=== PATIENT | female | born 1945 | race Caucasian/White ===

== ENCOUNTER 2016-11-09 08:16 | Outpatient (CLI) | payer MEDICARE, OTHER ==
[2016-11-09 17:37] LABS: BASOPHILS % (AUTO) 0.5 %; EOSINOPHILS % (AUTO) 0.4 %; HCT - HEMATOCRIT 42.1 % (37.0-47.0); HGB - HEMOGLOBIN 14.1 g/dL (12.0-16.0); LYMPHOCYTES # (AUTO) 2.5 10^3/uL (1.5-3.5); LYMPHOCYTES % (AUTO) 35.8 %; MEAN CORPUSCULAR HEMOGLOBIN 33.2 pg (27.0-31.0); MEAN CORPUSCULAR HGB CONC 33.4 g/dL (32.0-36.0); MEAN CORPUSCULAR VOLUME 99.3 fL (81.0-99.0); MEAN PLATELET VOLUME 7.8 fL (7.9-10.8); MONOCYTES # (AUTO) 0.5 10^3/uL (0.0-1.0); MONOCYTES % (AUTO) 7.9 %; NEUTROPHILS # (AUTO) 3.9 10^3/uL (1.5-6.6); NEUTROPHILS % (AUTO) 55.4 %; NUCLEATED RED BLOOD CELLS AUTO 0.1 /100WBC; RED BLOOD COUNT 4.24 10^6/uL (4.20-5.40); RED CELL DISTRIBUTION WIDTH 12.5 % (12.0-15.0)
[2016-11-09 20:34] LABS: ALBUMIN/GLOBULIN RATIO 1.3 (1.0-2.2); BILIRUBIN,TOTAL 0.8 mg/dL (0.2-1.0); BUN - BLOOD UREA NITROGEN 18 mg/dL (6-20); CALCIUM 9.8 mg/dL (8.5-10.3); CARBON DIOXIDE - CO2 28 mmol/L (21-32); CHLORIDE 107 mmol/L (101-111); CHOL/HDL RATIO 4.7 (<4.4); CHOLESTEROL 246 mg/dL; CREATININE 0.7 mg/dL (0.4-1.0); GFR - MDRD 83 (>89); GLUCOSE 106 mg/dL (70-100); HDL CHOLESTEROL 52 mg/dL; LDL/HDL RATIO 3.2 (<4.4); POTASSIUM 4.1 mmol/L (3.5-5.0); SODIUM 140 mmol/L (135-145); TOTAL PROTEIN 6.3 g/dL (6.7-8.2); TRIGLYCERIDES 145 mg/dL; VLDL CHOLESTEROL 29 mg/dL
== END 2016-11-09 08:17 | disposition home or self-care (01) ==
LOC: LAB.F 08:16
PROVIDERS: ATTEND Physician Assistant Medical
DX: G47.00 Insomnia, unspecified (principal); E78.2 Mixed hyperlipidemia; Z79.899 Other long term (current) drug therapy
CPT/HCPCS: 36415; 80053; 80061; 82306; 84443; 85025

== ENCOUNTER 2017-07-12 13:20 | Outpatient (CLI) | payer MEDICARE, OTHER ==
[2017-07-12] MEDS ORDERED: ALBUTEROL NEB 2.5 MG/3 ML INH ONE (14:00)
== END 2017-07-12 13:21 | disposition home or self-care (01) ==
LOC: RT 13:20
PROVIDERS: ATTEND Nurse Practitioner Primary Care
DX: J45.909 Unspecified asthma, uncomplicated (principal); R06.2 Wheezing
CPT/HCPCS: 94060

== ENCOUNTER 2018-01-24 08:32 | Outpatient (CLI) | payer MEDICARE, OTHER ==
[2018-01-24 12:58] LABS: BASOPHILS % (AUTO) 0.8 %; EOSINOPHILS # (AUTO) 0.2 10^3/uL (0.0-0.7); EOSINOPHILS % (AUTO) 3.9 %; HGB - HEMOGLOBIN 13.2 g/dL (12.0-16.0); LYMPHOCYTES # (AUTO) 2.1 10^3/uL (1.5-3.5); LYMPHOCYTES % (AUTO) 41.5 %; MEAN CORPUSCULAR HEMOGLOBIN 33.7 pg (27.0-31.0); MEAN CORPUSCULAR HGB CONC 34.7 g/dL (32.0-36.0); MEAN CORPUSCULAR VOLUME 96.9 fL (81.0-99.0); MEAN PLATELET VOLUME 7.8 fL (7.9-10.8); MONOCYTES # (AUTO) 0.5 10^3/uL (0.0-1.0); MONOCYTES % (AUTO) 9.6 %; NEUTROPHILS # (AUTO) 2.2 10^3/uL (1.5-6.6); NEUTROPHILS % (AUTO) 44.2 %; PLT - PLATELET COUNT 223 10^3/uL (130-450); RED BLOOD COUNT 3.93 10^6/uL (4.20-5.40); RED CELL DISTRIBUTION WIDTH 12.9 % (12.0-15.0); WHITE BLOOD COUNT 5.1 x10^3/uL (4.8-10.8)
[2018-01-24 13:19] LABS: ALBUMIN 3.4 g/dL (3.2-5.5); ALBUMIN/GLOBULIN RATIO 1.4 (1.0-2.2); ALKALINE PHOSPHATASE 53 IU/L (42-121); ALT ALANINE AMINOTRANSFERASE 22 IU/L (10-60); AST ASPARTATE AMINOTRANSFERASE 18 IU/L (10-42); BILIRUBIN,TOTAL 0.7 mg/dL (0.2-1.0); BUN - BLOOD UREA NITROGEN 17 mg/dL (6-20); CALCIUM 9.1 mg/dL (8.5-10.3); CARBON DIOXIDE - CO2 27 mmol/L (21-32); CHLORIDE 109 mmol/L (101-111); CHOL/HDL RATIO 4.8 (<4.4); CHOLESTEROL 213 mg/dL; CREATININE 0.7 mg/dL (0.4-1.0); GFR - MDRD 82 (>89); GLUCOSE 109 mg/dL (70-100); HDL CHOLESTEROL 44 mg/dL; LDL CHOLESTEROL,CALCULATED 144 mg/dL; LDL/HDL RATIO 3.3 (<4.4); SODIUM 142 mmol/L (135-145); TOTAL PROTEIN 5.9 g/dL (6.7-8.2); VLDL CHOLESTEROL 25 mg/dL
[2018-01-25 13:01] LABS: HEPATITIS C ANTIBODY NON-REACTIVE (NON-REACTIVE)
== END 2018-01-24 08:33 | disposition home or self-care (01) ==
LOC: LAB.F 08:32
PROVIDERS: ATTEND Physician Assistant Medical
DX: E55.9 Vitamin D deficiency, unspecified (principal); Z79.899 Other long term (current) drug therapy; M79.7 Fibromyalgia; G47.00 Insomnia, unspecified; M54.2 Cervicalgia; Z11.59 Encounter for screening for other viral diseases; E78.2 Mixed hyperlipidemia
CPT/HCPCS: 36415; 80053; 80061; 82306; 83721; 84443; 85025; 86803

== ENCOUNTER 2018-01-29 09:41 | Outpatient (CLI) | payer MEDICARE, OTHER ==
--- NOTE | 2018-01-29 17:12 | XRAY Report ---
Reason: HIP JOINT PAIN,LEFT,SHOULDER JOINT PAIN,RIGHT Procedure Date: 01/29/2018 Accession Number: [id number] / [id number] Procedure: XR - Hip w/Pelvis 2-3V LT CPT Code: FULL RESULT: EXAM: LEFT HIP AND PELVIS RADIOGRAPHY EXAM DATE: 01/29/2018 09:54 AM. HISTORY: Hip joint pain, left, shoulder joint pain, right. COMPARISONS: None. TECHNIQUE: 1 view of the pelvis and 1 view of the hip. FINDINGS: Bones: Normal. No fracture or bone lesion. Joints: The pubis symphysis, and sacroiliac joints are preserved. There is joint space narrowing of the femoral acetabular joints, mild and relatively symmetric. Soft Tissues: Normal. No soft tissue swelling. IMPRESSION: No fracture or dislocation. RADIA
--- NOTE | 2018-01-29 17:12 | XRAY Report ---
Reason: HIP JOINT PAIN,LEFT,SHOULDER JOINT PAIN,RIGHT Procedure Date: 01/29/2018 Accession Number: [id number] / [id number] Procedure: XR - Shoulder 2 View RT CPT Code: FULL RESULT: EXAM: RIGHT SHOULDER RADIOGRAPHY EXAM DATE: 01/29/2018 09:54 AM. CLINICAL HISTORY: Hip joint pain, left. Shoulder joint pain, right. COMPARISON: None. TECHNIQUE: 2 views. FINDINGS: Bones: Normal. No fracture or bone lesion. Joints: The glenohumeral joint is located. The acromioclavicular joint demonstrates mild degenerative changes. Soft tissues: The visualized hemithorax is unremarkable. No soft tissue swelling. IMPRESSION: No fracture or dislocation with mild AC joint degeneration as described. RADIA
== END 2018-01-29 09:42 | disposition home or self-care (01) ==
LOC: DI 09:41
PROVIDERS: ATTEND Physician Assistant Medical
DX: M25.552 Pain in left hip (principal); M19.011 Primary osteoarthritis, right shoulder

== ENCOUNTER 2018-02-14 12:51 | Outpatient (CLI) | payer MEDICARE, OTHER | END 2018-02-14 12:52 | disposition home or self-care (01) | LOC: LAB.F 12:51 | PROVIDERS: ATTEND Physician Assistant Medical | DX: Z01.818 Encounter for other preprocedural examination (principal) | CPT/HCPCS: 81001; 81003; 87086 ==

== ENCOUNTER 2018-07-09 08:00 | Outpatient (CLI) | payer MEDICARE, OTHER | END 2018-07-09 23:59 | disposition home or self-care (01) | LOC: LAB.R 08:00 | PROVIDERS: ATTEND Internal Medicine Gastroenterology | DX: K86.2 Cyst of pancreas (principal) | CPT/HCPCS: 81599; 82656 ==

== ENCOUNTER 2019-12-26 14:56 | Day surgery (SDC) | payer MEDICARE, OTHER ==
--- NOTE | 2019-12-26 15:01 | ED Physician Documentation ---
PD HPI LOWER EXT INJURY - Stated complaint Stated Complaint: ANKLE INJURY - History obtained from History obtained from: Patient, EMS - History of Present Illness PD HPI LOW EXT INJURY LOCATION: Left (She tripped and fell while hiking injuring her left ankle. No other injury. Unable to walk or bear weight. Pain is mild at rest but severe with any motion.) Review of Systems Ten Systems: 10 systems reviewed and negative Constitutional: reports: Reviewed and negative Eyes: reports: Reviewed and negative Nose: reports: Reviewed and negative Throat: reports: Reviewed and negative Cardiac: reports: Reviewed and negative Respiratory: reports: Reviewed and negative PD PAST MEDICAL HISTORY - Past Medical History Past Medical History: Yes - Present Medications Home Medications: Ambulatory Orders Medication Instructions Recorded Confirmed Docusate Sodium 100 mg PO BID #60 capsule 12/26/19 HYDROmorphone [Dilaudid] 1 - 2 tab PO Q4H PRN #30 tablet 12/26/19 Knee Scooter 1 unit TD ONCE #1 12/26/19 - Allergies Allergies/Adverse Reactions: Allergies Allergy/AdvReac Type Severity Reaction Status Date / Time codeine AdvReac Nausea Verified 12/26/19 15:43 - Living Situation Living Situation: reports: With spouse/s.o. - Social History Does the pt smoke?: No Does the pt have substance abuse?: No - Family History Family history: reports: Non contributory PD ED PE NORMAL - Vitals Vital signs reviewed: Yes - General General: Alert and oriented X 3, No acute distress - HEENT HEENT: PERRL, EOMI - Neck Neck: Supple, no meningeal sign, No bony TTP - Cardiac Cardiac: RRR, No murmur - Respiratory Respiratory: No respiratory distress, Clear bilaterally - Abdomen Abdomen: Soft, Non tender - Back Back: No CVA TTP, No spinal TTP - Derm Derm: Normal color, Warm and dry - Extremities Extremities: No edema, Other (She is tender over the proximal fibula on the left without deformity there. A lot of swelling especially over the lateral ankle on the left. Intact pedal pulses and sensation.) - Neuro Neuro: Alert and oriented X 3, Normal speech - Psych Psych: Normal mood, Normal affect Results - Vitals Vitals: Vital Signs - 24 hr 12/26/19 15:11 Temperature 36.8 C Heart Rate 76 Respiratory 18 Rate Blood Pressure 128/76 O2 Saturation 97 Oxygen O2 Source Room air - EKG (time done) 1754 Rate: Rate (enter#) (70) Rhythm: NSR Kimberly: Normal Intervals: Normal NE QRS: Normal Ischemia: Normal ST segments Computer interpretation: Agree with computer - Labs Labs: Laboratory Tests 12/26/19 12/26/19 12/26/19 17:00 17:00 17:00 WBC 10.5 RBC 4.21 Hgb 14.1 Hct 40.6 MCV 96.4 MCH 33.5 H MCHC 34.7 RDW 12.7 Plt Count 229 MPV 9.3 Neut # (Auto) 7.1 H Lymph # (Auto) 2.5 Leake # (Auto) 0.7 Eos # (Auto) 0.2 Baso # (Auto) 0.0 Absolute Nucleated RBC 0.00 Nucleated RBC % 0.0 PT 11.8 INR 1.0 Sodium 140 Potassium 4.1 Chloride 106 Carbon Dioxide 24 Anion Gap 10.0 BUN 14 Creatinine 0.6 Estimated GFR (MDRD) 98 Glucose 117 H Calcium 9.7 - Rads (name of study) L ankle/tibfib Radiology: EMP read contemporaneously (Trimalleolar fracture of the left ankle) PD MEDICAL DECISION MAKING - ED course ED course: 74-year-old woman with a trimalleolar fracture of the left ankle, she is otherwise healthy. Dr. Sabillon will come in and see her and likely do surgery tonight. Departure - Departure Disposition: ED Transfer to [facility] Clinical Impression: Trimalleolar fracture of ankle, closed Qualifiers: Encounter type: initial encounter Laterality: left Qualified Code(s): S82.852A - Displaced trimalleolar fracture of left lower leg, initial encounter for closed fracture Condition: Stable Discharge Date/Time: 12/26/19 19:25
[2019-12-26] MEDS: HYDROcod/ACETAM 5/325 MG TABLET PO STA ×2 (15:07→15:45)
[2019-12-26] MEDS ORDERED: HYDROmorphone 2 MG TABLET PO STA (15:23)
--- NOTE | 2019-12-26 16:05 | XRAY Report ---
PROCEDURE: Ankle 3 View LT INDICATIONS: leg inj TECHNIQUE: 3 views of the ankle were acquired. COMPARISON: None available FINDINGS: Bones: Mildly laterally displaced fibular fracture at the level of the syndesmosis. Mild medial morti se widening. Transverse medial malleolar fracture with slight comminution. There is impaction fractur e of the posterior malleolus.. No suspicious bony lesions. Prominent calcaneal spur. Soft tissues: Small tibiotalar joint effusion. Achilles tendon appears normal. IMPRESSION: 1. Trimalleolar fracture with medial mortise widening. Reviewed by: Susan Murdock MD on 12/26/2019 4:04 PM PDT Approved by: Susan Murdock MD on 12/26/2019 4:04 PM PDT Station ID: [id number]
--- NOTE | 2019-12-26 16:07 | XRAY Report ---
PROCEDURE: Tib/Fib LT INDICATIONS: leg inj TECHNIQUE: 2 views of the tibia and fibula were acquired. COMPARISON: None available FINDINGS: Bones: No proximal tibial or fibular fractures or dislocations. Distal tibia and fibular (trimalleol ar) fracture detailed on separate ankle report. Knee arthroplasty components are in place and appear intact. No suspicious bony lesions. Soft tissues: No suspicious soft tissue calcifications or masses. IMPRESSION: Proximal tibia and fibula are intact. Trimalleolar fracture at the ankle described separately. Left knee prosthesis with intact components. Reviewed by: Susan Murdock MD on 12/26/2019 4:06 PM PDT Approved by: Susan Murdock MD on 12/26/2019 4:06 PM PDT Station ID: [id number]
[2019-12-26 17:17] LABS: BASOPHILS % (AUTO) 0.4 %; EOSINOPHILS # (AUTO) 0.2 10^3/uL (0.0-0.7); EOSINOPHILS % (AUTO) 1.7 %; HGB - HEMOGLOBIN 14.1 g/dL (12.0-16.0); LYMPHOCYTES # (AUTO) 2.5 10^3/uL (1.5-3.5); LYMPHOCYTES % (AUTO) 23.7 %; MEAN CORPUSCULAR HEMOGLOBIN 33.5 pg (27.0-31.0); MEAN CORPUSCULAR HGB CONC 34.7 g/dL (32.0-36.0); MEAN CORPUSCULAR VOLUME 96.4 fL (81.0-99.0); MEAN PLATELET VOLUME 9.3 fL (7.9-10.8); MONOCYTES # (AUTO) 0.7 10^3/uL (0.0-1.0); MONOCYTES % (AUTO) 6.5 %; NEUTROPHILS # (AUTO) 7.1 10^3/uL (1.5-6.6); NEUTROPHILS % (AUTO) 67.2 %; PLT - PLATELET COUNT 229 10^3/uL (130-450); RED BLOOD COUNT 4.21 10^6/uL (4.20-5.40); RED CELL DISTRIBUTION WIDTH 12.7 % (12.0-15.0); WHITE BLOOD COUNT 10.5 x10^3/uL (4.8-10.8)
[2019-12-26 17:27] LABS: CALCIUM 9.7 mg/dL (8.5-10.3); CREATININE 0.6 mg/dL (0.4-1.0)
[2019-12-26 17:34] LABS: PT - PROTHROMBIN TIME 11.8 secs (9.9-12.6)
[2019-12-26] MEDS ORDERED: HYDROmorphone 1 MG/ML CARPUJECT IVP STA (17:42)
[2019-12-26] MEDS ORDERED: LACTATED RINGERS 1,000 ML IV STA (18:03)
--- NOTE | 2019-12-26 18:45 | ANESTHESIA ---
Pre-Anesthesia VS, & Labs - Diagnosis fx L ankle, unstable - Procedure ORIF L ankle Vital Signs: Temp Pulse Resp BP Pulse Ox 36.8 C 76 18 128/76 97 12/26/19 15:11 12/26/19 15:11 12/26/19 15:11 12/26/19 15:11 12/26/19 15:11 Height 5 ft 7 in Weight (kg) 71.214 kg Body Mass Index 24.5 - NPO >8 hours - Is Patient ?: No - Lab Results Current Lab Results: Laboratory Tests 12/26/19 17:00: PT 11.8, INR 1.0 12/26/19 17:00: Sodium 140, Potassium 4.1, Chloride 106, Carbon Dioxide 24, Anion Gap 10.0, BUN 14, Creatinine 0.6, Estimated GFR (MDRD) 98, Glucose 117 H, Calcium 9.7 12/26/19 17:00: WBC 10.5, RBC 4.21, Hgb 14.1, Hct 40.6, MCV 96.4, MCH 33.5 H, MCHC 34.7, RDW 12.7, Plt Count 229, MPV 9.3, Neut # (Auto) 7.1 H, Lymph # (Auto) 2.5, [place] # (Auto) 0.7, Eos # (Auto) 0.2, Baso # (Auto) 0.0, Absolute Nucleated RBC 0.00, Nucleated RBC % 0.0 Fish Bones: 12/26/19 17:00 12/26/19 17:00 Home Medications and Allergies Active Medications Lactated Ringer's (Lr) 1,000 mls @ 50 mls/hr IV .Q20H STA Stop: 12/27/19 14:02 Last Admin: 12/26/19 18:13 Dose: 50 mls/hr Documented by: Allergies/Adverse Reactions: Allergies Allergy/AdvReac Type Severity Reaction Status Date / Time codeine AdvReac Nausea Verified 12/26/19 15:43 Anes History & Medical History - Anesthetic History Anesthesia Complications: reports: No previous complications Family history of Anesthesia Complications: Denies Family history of Malignant Hyperthermia: Denies - Medical History Cardiovascular: reports: None Pulmonary: reports: None Gastrointestinal: reports: None Urinary: reports: None Neuro: reports: None Musculoskeletal: reports: None Endocrine/Autoimmune: reports: None Blood Disorders: reports: None Skin: reports: None Smoking Status: Never smoker - Surgical History Orthopedic: Knee replacement Exam General: Alert, Oriented x3 Dental: WNL Mouth Openin Fingerbreadth Neck Mobility: Normal Mallampati classification: I Thyromental Distance: greater than 6 cm Respiratory: Lungs clear, Normal breath sounds, No respiratory distress Cardiovascular: Regular rate Neurological: Normal speech Mental/Cognitive Status: Alert/Oriented X3, Normal for patient Cognitive Status: Within normal limits Plan Anesthesia Type: General, Sciatic Nerve Block Regional Block: Per Surgeon's request for Post Op pain control Consent for Procedure(s) Verified and Reviewed: Yes Code Status: Attempt Resuscitation ASA classification: 2-Mild systemic disease Is this case an emergency?: Yes
[2019-12-26] MEDS ORDERED: HYDROmorphone 0.5 MG/0.5 ML SYRINGE IVP PRN (18:47)
[2019-12-26] MEDS ORDERED: ONDANSETRON 4 MG/2 ML VIAL IVP PRN ×3 (18:47→22:33)
[2019-12-26] MEDS ORDERED: ATROPINE ABBOJECT 1 MG/10 ML SYRINGE IVP PRN (18:47)
[2019-12-26] MEDS ORDERED: fentaNYL 100 MCG/2 ML VIAL IVP PRN (18:47)
[2019-12-26] MEDS ORDERED: MORPHINE 2 MG/ML CARPUJECT IVP PRN (18:47)
[2019-12-26] MEDS ORDERED: NALOXONE 0.4 MG/ML VIAL IVP PRN (18:47)
[2019-12-26] MEDS ORDERED: ePHEDrine 50 MG/ML VIAL IVP PRN (18:47)
[2019-12-26] MEDS ORDERED: METOCLOPRAMIDE 10 MG/2 ML VIAL IVP PRN (18:47)
[2019-12-26] MEDS ORDERED: BUPIVACAINE 0.25%-EPI 1:200000 PF 30 ML VIAL ONE (18:55)
[2019-12-26] MEDS ORDERED: DEXAMETHASONE 4 MG/ML VIAL IVP ONE (19:21)
[2019-12-26] MEDS ORDERED: ePHEDrine 50 MG/ML VIAL IVP ONE (19:21)
[2019-12-26] MEDS ORDERED: LIDOCAINE-MPF 2% 5 ML VIAL IM ONE (19:21)
[2019-12-26] MEDS ORDERED: ONDANSETRON 4 MG/2 ML VIAL IVP ONE (19:21)
[2019-12-26] MEDS ORDERED: PROPOFOL 200 MG/20 ML VIAL IVP ONE (19:21)
[2019-12-26] MEDS ORDERED: MIDAZOLAM 2 MG/2 ML VIAL IVP ONE (19:21)
[2019-12-26] MEDS ORDERED: fentaNYL 100 MCG/2 ML VIAL IVP ONE (19:21)
[2019-12-26] MEDS ORDERED: CEFAZOLIN SODIUM IN 0.9 % NACL 2 GM/100 ML BAG IV ONE (19:25)
[2019-12-26] MEDS ORDERED: BUPIVACAINE 0.25%-EPI 1:200000 PF 10 ML VIAL SUBQ ONE ×2 (20:40)
[2019-12-26] MEDS ORDERED: ACETAMINOPHEN 1,000 MG/100 ML 100 ML IV ONE ×2 (20:45→21:07)
[2019-12-26] MEDS ORDERED: oxyCODONE 5 MG TABLET PO PRN ×2 (20:55→22:31)
[2019-12-26] MEDS ORDERED: LACTATED RINGERS 1,000 ML IV ONE (20:55)
--- NOTE | 2019-12-26 21:00 | OPERATIVE REPORT ---
Operative Report - General Procedure Date: 12/26/19 Planned Procedure: ORIF of left ankle fracture Pre-Op Diagnosis: Unstable left bimalleolar ankle fracture Procedure Performed: Open reduction and internal fixation of left ankle fracture Post Op Diagnosis: Same - Procedure Note Primary Surgeon: Oscar Sabillon MD Anesthesia Provider: Chapin Acharya CRNA Anesthesia Technique: General ET tube, Regional block IV Fluids (mL): 800 Estimated Blood Loss (mL): 50 Complications: None
--- NOTE | 2019-12-26 21:28 | ANESTHESIA POST OP EVALUATION ---
Anesthesia Post Eval - Post Anesthesia Eval Vitals: Last Vital Signs Temp 36.3 C L 12/26/19 20:55 Pulse 71 12/26/19 21:10 Resp 14 12/26/19 21:10 BP 122/55 L 12/26/19 21:10 Pulse Ox 100 12/26/19 21:10 CV Function Including HR & BP: positive: Stable Pain Control: positive: Satisfactory Nausea & Vomiting: positive: Negative Mental Status: positive: Baseline Respiratory Status: Airway Patent Hydration Status: Satisfactory Anesthesia Complications: positive: None
[2019-12-26 22:25] VITALS: BP 135/58
--- NOTE | 2019-12-27 00:27 | HISTORY & PHYSICAL EXAMINATION ---
DATE OF SERVICE: 12/26/2019 Physician: Julito Sabillon MD REFERRING PHYSICIAN: Dr. Mitesh Raza of the Emergency Room Department. CHIEF COMPLAINT: "I hurt my left ankle." HISTORY OF PRESENT ILLNESS: The patient is a 74-year-old female in good health, younger th an her stated age, who apparently [place] [facility] when she s lipped, twisting her ankle as she was walking over some gravel on the trail. She sustained a painful injury to her ankle. She was unable to stand or weight bear. No other injuries were noted. No los s of consciousness. No distal weakness or numbness noted. Upon arrival here at [facility] Emergency Room, she was evaluated for her ankle injury. This included x-rays which showed that she had an unstable, displaced, closed bimalleolar ankle fracture. After considering whether to proc eed with surgery for fixation of her fracture here versus at the [facility], they have opted to remain here. PAST MEDICAL HISTORY: History of a left total knee replacement done by an orthopedic surgeon at [facility]. ALLERGIES: NONE KNOWN, ? CODEINE HOWEVER. REVIEW OF SYSTEMS: Noncontributory. PHYSICAL EXAMINATION GENERAL: Showed a healthy-appearing elderly woman lying on a stretcher in mild amount of d iscomfort. VITAL SIGNS: The patient's vital signs were afebrile, pulse is 76 and blood pressure of 128/76, resp iratory rate is 18. HEENT: Normocephalic, PERRLA. EOMs full. Vision and hearing grossly intact. Throat was clear. NECK: Soft, supple. No obvious masses noted. LUNGS: Clear to auscultation. CARDIOVASCULAR: Regular rate and rhythm. S1 and S2 heard without murmurs, rubs or gallops. ABDOMEN: Soft, nontender, active bowel sounds present. EXTREMITIES: The patient's extremities are within normal limits except for the left lower extremity. Left lower extremity shows some mild amount of swelling present. No open wounds noted. Some mild deformity at the ankle appreciated. Tenderness both medially and laterally around the ankle. The pa tient is able to move her toes satisfactory. Sensation appeared to be intact distally. Good capilla ry filling noted. NEUROLOGIC: The patient is alert and oriented x3. Sensory and motor exam grossly intact and symmetr ical throughout. X-RAYS: X-rays were taken of the left ankle shows a bimalleolar ankle fracture, mildly displaced. ASSESSMENT: Closed displaced unstable bimalleolar left ankle fracture. PLAN: After treatment options were explained to the patient, she has opted to proceed for surgical f ixation today at our facility. She last ate at about 11 a.m. Plan will then be to proceed with surg ical fixation of her fracture this evening. Risks and benefits of surgery were explained to the dean ent. These include possible anesthesia complications, infection, blood loss, nerve damage, malunion, nonunion, deep venous thrombosis, etc. We have answered all her questions and her 's questio ns. She wishes to proceed with surgery as planned. We anticipate this to be an outpatient procedure . She will be able to leave home afterwards, after she is fully recovered. TD: 12/26/2019 18:42
--- NOTE | 2019-12-27 01:09 | OPERATIVE REPORT ---
DATE OF SERVICE: 12/26/2019 Physician: Julito Sabillon MD POSTOPERATIVE DIAGNOSIS: Closed displaced unstable left bimalleolar ankle fracture. POSTOPERATIVE DIAGNOSIS: Closed displaced unstable left bimalleolar ankle fracture. PROCEDURE PERFORMED: Open reduction and internal fixation of left ankle fracture. SURGEON: Julito Sabillon MD ANESTHESIA: General with peripheral nerve block. DESCRIPTION OF PROCEDURE: The patient was taken to the operating room on the afternoon of 12/26/2019 where she was placed under general anesthetic without any complications. She then had peripheral sc iatic nerve block performed by anesthesia. We then applied a thigh pneumatic tourniquet to the left lower extremity. We did not inflate this tourniquet, however, during our procedure. We then prepped and draped the leg free in the usual fashion for our procedure. Through a longitudinal lateral ankl e incision, we dissected down to the lateral malleolar ankle fracture. Once this was identified, we used a periosteal elevator to remove the periosteum about the fracture and along the fibular shaft. A curette was then used to remove the small amount of fracture hematoma present. We then with gentle longitudinal traction were able to bring the fracture out to length and to reduce the fracture, esse ntially anatomically. This was held in place provisionally with a towel clip reduction clamp. Fluor oscopic view showed a good reduction of our fracture and the fracture to be out to length. We then a pplied a lateral distal fibular plate from the [employer] instrumentation set. Fluoroscopi c view showed that this fracture was properly positioned and adequate length. We then used standard technique to fill the proximal 4 holes and the distal 4 holes with the appropriate length 3.5 mm lock ing screw with an occasional nonlocking screw depending on the hardware that was available. After ou r fixation of the lateral malleolar ankle fracture, fluoroscopic views showed again the fracture to b e essentially out to length and anatomically reduced. Satisfactory placement of the hardware was not ed as well. Next, we paid attention to the medial malleolar ankle fracture. Through a longitudinal medial skin i ncision, we dissected down to the fracture. Periosteal elevator used to remove the periosteum around the fracture edges. A curette used to remove the fracture hematoma. Then, with gentle traction and manipulation, we were able to reduce the fracture satisfactory and hold it provisionally with a towe l clip reduction clamp. Next, a threaded tipped guidewires were then inserted across the fracture. Fluoroscopic views again showed the pins to be in satisfactory position, as well as a good reduction of our medial malleolar ankle fracture and rastafari of the ankle mortise. Satisfied with this, a direct measuring guide indicated we would use two 40 mm length, 4.0 mm cannulated short tip screws. The cannulated drill was then used to perforate the cortex using the 2 guide pins, which had been ins erted previously. We then followed with the selected 4.0 cannulated screws over our pins. Fluorosco pic views again showed satisfactory position of our hardware, rastafari of the ankle mortise and go od reduction of both the medial and lateral malleolar ankle fractures. The guide pin was removed fro m the medial malleolus. Permanent x-rays were then obtained. Wounds were then washed with saline. We closed the wounds in layers using buried simple stitches of 3-0 Vicryl to approximate subcutaneous tissues, followed by skin megan to approximate the skin edge of both sides. We then injected a total of 20 mL of 0.25% Marcaine with epinephrine into both the m edial and lateral incision sites. Washed the wounds, applied Xeroform gauze, sterile 4 x 4's, and We bril, followed by a short-leg posterior splint with stirrups. The patient was then awoken from [facility] and taken to the recovery room in satisfactory condition. ESTIMATED BLOOD LOSS: 50 mL. REPLACEMENT: 800 mL of crystalloid. INTRAOPERATIVE COMPLICATION: None. PLAN: The patient will be nonweightbearing on this extremity for approximately a month's time total. Have her come back in about a week's time for a wound check and reapplication of a short leg cast a t that time. TD: 12/26/2019 21:12
--- NOTE | 2019-12-28 14:56 | XRAY Report ---
PROCEDURE: OR C-Arm Procedure PROCEDURE: OR C-Arm Procedure INDICATIONS: ORIF LEFT ANKLE TECHNIQUE: 2 views of the ankle were acquired. COMPARISON: 12/26/2019 FINDINGS: Bones: Intraoperative images demonstrating ORIF of lateral medial malleolar fractures noted. Orthoped ic hardware is intact. There is anatomic alignment of the fracture fragments following ORIF. Soft tissues: No tibiotalar joint effusion. Achilles tendon appears normal. IMPRESSION: Anatomic alignment following ORIF of medial and lateral malleolar fractures. Reviewed by: Maritza Mata MD, PhD on 12/28/2019 2:55 PM PDT Approved by: Maritza Mata MD, PhD on 12/28/2019 2:55 PM PDT Station ID: [id number]
== END 2019-12-26 23:09 | disposition home or self-care (01) ==
LOC: EDUNIT# → ED 14:56 → MS2 16:15 → SDS 16:15 → ICU 21:47 → SDS 23:09
PROVIDERS: ATTEND Orthopaedic Surgery
DX: S82.842A Displaced bimalleolar fracture of left lower leg, initial encounter for closed fracture (principal); X50.1XXA Overexertion from prolonged static or awkward postures, initial encounter; Y93.01 Activity, walking, marching and hiking; Y92.89 Other specified places as the place of occurrence of the external cause; Z96.651 Presence of right artificial knee joint
CPT/HCPCS: 27814; 36415; 73590; 73610; 80048; 85025; 85610; 93005; 99284; 99285; A9270; C1713; J0131; J0690; J1170; J7120; 76000

== ENCOUNTER 2019-12-26 16:46 | Outpatient (CLI) | payer MEDICARE, OTHER | END 2019-12-26 16:47 | disposition critical access hospital (66) | LOC: EMS 16:46 | PROVIDERS: ATTEND Surgery | DX: S99.912A Unspecified injury of left ankle, initial encounter (principal); W18.30XA Fall on same level, unspecified, initial encounter; Y92.838 Other recreation area as the place of occurrence of the external cause | CPT/HCPCS: A0425; A0429 ==

== ENCOUNTER 2020-01-01 08:20 | Outpatient (CLI) | payer MEDICARE, OTHER ==
--- NOTE | 2020-01-01 15:22 | XRAY Report ---
PROCEDURE: Ankle 3 View LT INDICATIONS: LEFT ANKLE FRACTURE TECHNIQUE: 3 views of the ankle were acquired. COMPARISON: Left ankle radiographs dated 12/25/2017 FINDINGS: Bones: Postsurgical changes are seen from reduction and internal fixation of the previously seen tri malleolar fractures. 2 metallic screws are seen in the medial malleolus. A lateral plate and screw co nstruct is seen at the distal fibula. Overlying plaster cast is seen that obscures fine bony detail. The alignment is improved when compared to the preoperative exam and now appears anatomic. Soft tissues: Skin megan are seen over the medial and lateral malleoli. IMPRESSION: Postsurgical changes from open reduction and internal fixation of the previously seen di stal tibial and fibular fractures with improved alignment. Reviewed by: Partick Santana MD on 01/01/2020 3:20 PM PDT Approved by: Patrick Santana MD on 01/01/2020 3:20 PM PDT Station ID: [id number]
== END 2020-01-01 23:59 | disposition home or self-care (01) ==
LOC: DI.WCP 08:20
PROVIDERS: ATTEND Orthopaedic Surgery
DX: S82.852D Displaced trimalleolar fracture of left lower leg, subsequent encounter for closed fracture with routine healing (principal); S82.832D Other fracture of upper and lower end of left fibula, subsequent encounter for closed fracture with routine healing

== ENCOUNTER 2020-01-08 15:57 | Outpatient (CLI) | payer MEDICARE, OTHER ==
--- NOTE | 2020-01-08 16:00 | XRAY Report ---
PROCEDURE: Ankle 3 View LT INDICATIONS: LEFT ANKLE FRACTURE, POST-OP CARE TECHNIQUE: 3 views of the ankle were acquired. COMPARISON: 01/01/2020 FINDINGS: Bones: No previously unidentified fractures or dislocations. Normal alignment is established by ORIF of the previously identified medial and lateral malleolar fractures. Ankle mortise is normally align ed. No suspicious bony lesions. Soft tissues: No tibiotalar joint effusion. Achilles tendon appears normal. IMPRESSION: Normal alignment maintained out of cast in this patient who has had ORIF of medial and l ateral malleolar fractures. Reviewed by: Romeo Santos MD on 01/08/2020 3:58 PM PDT Approved by: Romeo Santos MD on 01/08/2020 3:58 PM PDT Station ID: [id number]
== END 2020-01-08 23:59 | disposition home or self-care (01) ==
LOC: DI.WCP 15:57
PROVIDERS: ATTEND Physician Assistant
DX: S82.842D Displaced bimalleolar fracture of left lower leg, subsequent encounter for closed fracture with routine healing (principal)

== ENCOUNTER 2020-02-11 14:00 | Outpatient (CLI) | payer MEDICARE, OTHER ==
--- NOTE | 2020-02-12 09:16 | XRAY Report ---
PROCEDURE: Ankle 3 View LT INDICATIONS: L ANKLE ORIF TECHNIQUE: 3 views of the ankle were acquired. COMPARISON: 01/08/2020, 01/01/2020, 12/26/2019. FINDINGS: Bones: Postsurgical changes are redemonstrated status post ORIF of fractures in the distal fibula and medial malleolus. There is no interval change in alignment. Surgical hardware appears intact. There is progressive healing with decreased conspicuity of the fracture lines. A small healing fracture of the posterior malleolus is also noted. Ankle mortise demonstrates preserved alignment. There is mild tibiotalar joint degeneration. A small corticated ossicle inferior to the medial malleolus consistent with a prior avulsion injury is redemonstrated. No suspicious bony lesions. Soft tissues: No tibiotalar joint effusion. Achilles tendon appears intact. IMPRESSION: 1. Healing trimalleolar fractures of the left ankle without change in alignment. Surgical hardware ap pears intact. Reviewed by: Hieu Pink MD on 02/12/2020 8:14 AM REID Approved by: Hieu Pink MD on 02/12/2020 8:14 AM AKCÉSAR Station ID: [id number]
== END 2020-02-11 23:59 | disposition home or self-care (01) ==
LOC: DI.WCP 14:00
PROVIDERS: ATTEND Physician Assistant
DX: S82.852D Displaced trimalleolar fracture of left lower leg, subsequent encounter for closed fracture with routine healing (principal)

== ENCOUNTER 2020-07-08 13:33 | Outpatient (CLI) | payer MEDICARE ==
[2020-07-08 14:29] LABS: BASOPHILS % (AUTO) 0.6 %; EOSINOPHILS # (AUTO) 0.2 10^3/uL (0.0-0.7); EOSINOPHILS % (AUTO) 3.2 %; HCT - HEMATOCRIT 40.8 % (37.0-47.0); HGB - HEMOGLOBIN 13.9 g/dL (12.0-16.0); LYMPHOCYTES # (AUTO) 2.5 10^3/uL (1.5-3.5); LYMPHOCYTES % (AUTO) 34.9 %; MEAN CORPUSCULAR HEMOGLOBIN 33.4 pg (27.0-31.0); MEAN CORPUSCULAR HGB CONC 34.1 g/dL (32.0-36.0); MEAN CORPUSCULAR VOLUME 98.1 fL (81.0-99.0); MONOCYTES # (AUTO) 0.6 10^3/uL (0.0-1.0); MONOCYTES % (AUTO) 8.2 %; NEUTROPHILS # (AUTO) 3.8 10^3/uL (1.5-6.6); NEUTROPHILS % (AUTO) 52.8 %; PLT - PLATELET COUNT 237 10^3/uL (130-450); RED BLOOD COUNT 4.16 10^6/uL (4.20-5.40); RED CELL DISTRIBUTION WIDTH 12.3 % (12.0-15.0); WHITE BLOOD COUNT 7.2 x10^3/uL (4.8-10.8)
[2020-07-08 14:37] LABS: ALBUMIN 4.2 g/dL (3.2-5.5); ALBUMIN/GLOBULIN RATIO 1.5 (1.0-2.2); BILIRUBIN,TOTAL 0.7 mg/dL (0.2-1.0); CALCIUM 10.1 mg/dL (8.5-10.3); CREATININE 0.9 mg/dL (0.4-1.0); POTASSIUM 4.2 mmol/L (3.5-5.0)
[2020-07-08 19:48] LABS: ESTIMATED AVERAGE GLUCOSE 97 mg/dL (70-100)
== END 2020-07-08 13:34 | disposition home or self-care (01) ==
LOC: RT 13:33
PROVIDERS: ATTEND Podiatrist Foot & Ankle Surgery
DX: Z01.812 Encounter for preprocedural laboratory examination (principal); M19.172 Post-traumatic osteoarthritis, left ankle and foot
CPT/HCPCS: 36415; 80053; 83036; 85025; 93005

== ENCOUNTER 2020-07-08 14:06 | Outpatient (CLI) | payer MEDICARE, OTHER ==
--- NOTE | 2020-07-08 16:20 | DEXA Report ---
PROCEDURE: Dexa Spine and/or Hip INDICATIONS: OSTEOPENIA TECHNIQUE: Dual energy x-ray absorptiometry (DXA) was performed on a [employer] System. Regions measur ed are the AP Spine, femoral neck, and if needed forearm. COMPARISON: None. FINDINGS: Lumbar Spine: Bone Mineral Density 1.307 g/cm/cm,T score 1.1, Left Femoral Neck: Bone Mineral Density 0.883 g/cm/cm, T score -1.0, (T score greater or equal to -1.0: NORMAL) (T score from -1.1 to -2.4: OSTEOPENIA) (T score less than or equal to -2.5 to: OSTEOPOROSIS) Impression: Normal. Patients with diagnosis of osteoporosis or osteopenia should have regular bone mineral density assess ment. For those eligible for Medicare, routine testing is allowed once every 2 years. Testing frequ ency can be increased for patients who have rapidly progressing disease or for those who are receivin g medical therapy to restore bone mass. Reviewed by: Ulises Cummins MD on 07/08/2020 4:19 PM PST Approved by: Ulises Cummins MD on 07/08/2020 4:19 PM PST Station ID: [id number]
== END 2020-07-08 14:07 | disposition home or self-care (01) ==
LOC: DI 14:06
PROVIDERS: ATTEND Registered Nurse
DX: Z01.812 Encounter for preprocedural laboratory examination (principal); M19.172 Post-traumatic osteoarthritis, left ankle and foot; M85.88 Other specified disorders of bone density and structure, other site
CPT/HCPCS: 36415; 80053; 83036; 85025; 93005

== ENCOUNTER 2020-11-01 14:24 | Outpatient (CLI) | payer MEDICARE ==
--- NOTE | 2020-11-01 15:03 | XRAY Report ---
PROCEDURE: Foot 3 View LT INDICATIONS: UNSPECIFIED INJURY OF LT FOOT TECHNIQUE: 3 views of the foot were acquired. COMPARISON: None FINDINGS: Bones: No fractures or dislocations. No suspicious bony lesions. Mild joint space narrowing and pe riarticular osteophyte formation at the interphalangeal joints of the digits as well as the first met atarsophalangeal joint, and the first tarsometatarsal joint. Hardware within the distal tibia and fib micaela. Calcaneal spurring. Soft tissues: No tibiotalar joint effusion. Achilles tendon appears normal. IMPRESSION: Multifocal osteoarthritis. No acute fracture. No osseous lesion. If symptoms and/or clinical suspicio n for pathology continue, further assessment with repeat plain films, or advanced imaging (e.g., CT, MRI, or bone scan) is recommended for further assessment. Reviewed by: Pito Moore MD on 11/01/2020 3:02 PM PDT Approved by: Pito Moore MD on 11/01/2020 3:02 PM PDT Station ID: [id number]
== END 2020-11-01 14:25 | disposition home or self-care (01) ==
LOC: DI.S 14:24
PROVIDERS: ATTEND Nurse Practitioner Family
DX: M19.072 Primary osteoarthritis, left ankle and foot (principal)

== ENCOUNTER 2021-01-04 15:56 | Outpatient (CLI) | payer MEDICARE ==
--- NOTE | 2021-01-05 10:56 | Ultrasound Report ---
PROCEDURE: Pelvic w/Transvaginal INDICATIONS: POSTMENOPAUSAL BLEEDING TECHNIQUE: Real-time scanning was performed of the pelvic organs, with image documentation. Additional endovagi nal scanning was necessary due to incomplete visualization of the adnexal and endometrial structures by transabdominal scanning. COMPARISON: None. FINDINGS: No pathologic free abdominal or pelvic fluid. Uterus: Uterus is normal in size at 4.7 x 2.8 x 3.4 cm. The endometrium measures 5.7 mm in combined thickness. Focus of heterogenous echogenicity is present in the right posterior subserosal area mary alice uring 9 x 6 x 8 mm. Ovaries: Not visualized. IMPRESSION: 1. Heterogenous focus in the uterus suggestive of fibroid. 2. Endometrium is abnormally thickened given history of post menopausal bleeding. While no mass is identified, further DATABASE DES[employer]ER consult and potential biopsy is recommended, as malignancy cannot be excluded . Reviewed by: Sari Dexter MD on 01/05/2021 10:55 AM PDT Approved by: Sari Dexter MD on 01/05/2021 10:55 AM PDT Station ID: [id number]
== END 2021-01-04 15:57 | disposition home or self-care (01) ==
LOC: DI 15:56
PROVIDERS: ATTEND Nurse Practitioner Family
DX: N95.0 Postmenopausal bleeding (principal); R93.89 Abnormal findings on diagnostic imaging of other specified body structures

== ENCOUNTER 2021-06-29 08:00 | Outpatient (CLI) | payer MEDICARE | END 2021-06-29 23:59 | disposition home or self-care (01) | LOC: LAB.S 08:00 | DX: R19.7 Diarrhea, unspecified (principal) | CPT/HCPCS: 81599; 87015; 87177; 87207; 87209; 87328; 87329 ==

== ENCOUNTER 2023-08-21 08:00 | Outpatient (CLI) | payer MEDICARE | END 2023-08-21 23:59 | disposition home or self-care (01) | LOC: LAB.S 08:00 | PROVIDERS: ATTEND Emergency Medicine | DX: L08.9 Local infection of the skin and subcutaneous tissue, unspecified (principal) | CPT/HCPCS: 87070; 87205 ==